=== PATIENT | male | born 1965 | race Caucasian/White ===

== ENCOUNTER → 2023-03-13 | Outpatient (CLI) | payer OTHER, MEDICAID, SELFPAY ==
[2023-03-13 10:57] LABS: Creatinine, Serum 0.91 mg/dL (0.70-1.30); EST Glomerular Filtration Rate 91 mL/min (>60); Est Glom Filt Rate - Afr Amer 110 mL/min (>60)
== END | disposition home or self-care (01) ==
LOC: LAB 10:12
PROVIDERS: Referring Provider Orthopaedic Surgery; Visit Provider Orthopaedic Surgery
DX: N28.1 Cyst of kidney, acquired (principal)
CPT/HCPCS: 36415; 82565

== ENCOUNTER → 2023-03-20 | Outpatient (CLI) | payer OTHER, MEDICAID, SELFPAY ==
--- NOTE | 2023-03-20 07:56 | CT_ITS ---
CT LEFT LOWER EXTREMITY WITH 3-D IMAGING CLINICAL INDICATION: Varus deformity, not elsewhere classified, left knee. Preop left knee. TECHNIQUE: Axial CT images of the left lower extremity (including left hip, left knee, and left ankle) was performed without IV contrast material. Coronal and sagittal reformats were provided. RADIATION DOSAGE (If Supplied By Facility): CTDIvol = ( 20.10 ) mGy, DLP = ( 1183.57 ) mGycm COMPARISON: None. FINDINGS: Left Hip: There is degenerative arthrosis of the left hip joint with joint space narrowing, small marginal osteophyte formation, and subchondral cyst formation in the superolateral acetabulum. There are small calcified loose bodies in the inferomedial and inferoposterior recesses of the left hip joint, measuring up to 6 mm in diameter. Left Knee: There is moderate degenerative arthrosis of the medial femorotibial compartment with joint space narrowing, marginal osteophyte formation, and subchondral sclerosis, cyst formation. There is mild degenerative arthrosis of the lateral femorotibial compartment with small marginal osteophyte formation. There is mild degenerative arthrosis of the patellofemoral compartment with marginal osteophyte formation. There are at least 2 ossified loose bodies in the posterior femorotibial joint recess, measuring up to 9 mm in diameter. There are also small ossified loose bodies in the lateral patellofemoral joint recess, measuring up to 7 mm in diameter. Osseous structures are intact without evidence of acute fracture or dislocation. No lytic or blastic osseous masses. Left Ankle: Normal tibiotalar, talonavicular, and subtalar joints. Soft Tissues: The deep soft tissue structures are unremarkable. The superficial soft tissues are unremarkable without evidence of edema, hematoma, or foreign body. CT/Extremity Lower without Contra IMPRESSION: Tricompartment degenerative arthrosis of the left knee, most pronounced in the medial femorotibial compartment. Ossified loose bodies in the posterior femorotibial joint recess and lateral patellofemoral joint recess. Electronically Signed: Abel Alexis MD at 8:13 EDT ,
== END | disposition home or self-care (01) ==
LOC: CT 07:55
PROVIDERS: PCP Physician Assistant; Referring Provider Orthopaedic Surgery; Visit Provider Orthopaedic Surgery
DX: M21.162 Varus deformity, not elsewhere classified, left knee (principal); M17.12 Unilateral primary osteoarthritis, left knee
CPT/HCPCS: 73700

== ENCOUNTER 2023-08-25 09:00 | Outpatient (RCR) | payer OTHER, MEDICAID, SELFPAY ==
--- NOTE | 2023-06-13 11:05 | HP.PTEVAL ---
Patient's Visit Information Visit Information Visit Information: CADEN BARAKAT is a 57 year old M referred to Physical Therapy by BR[facility] with a diagnosis of L TKA, DOS: 06/07/23. Date of Evaluation: 06/13/23 Physical Therapist: Ty Call DPT Visit Plan Frequency: 3x /Week Duration: 6 Weeks Plan: 1) Start with L knee ROM both PROM and AROM, L tibial femoral joint mobilizations, patellar mobilizations. 2) Vaso/ice for edema. 3) quad and HS activation 4) gait progression Pt. was pretty stiff into flexion, continue to work on this and focus for HEP. Subjective Subjective: Pt. is here today for his initial evaluation with diagnosis of L TKA DOS: 06/07/23. Pt. arrives using FWW with good tolerance. Pt. denies N/T, no chest pain, difficulty breathing and no calf pain. Pt. is taking Eliquis. Pt. works at a assistant track coach at [employer] Pt. does have a pace maker. Pt. reports trying to bend and straightening his knee. Pt. reports frequent swelling. He is lifting his L leg with his R leg. Pt. has been doing his exercises at home. Difficulty with sleeping secondary to pain. He is hopeful to increase his ROM and decrease pain in order to get back to all recreational and work activities without limitations. Pain L knee: Pain Intensity (Out of 10): 5 Pain Intensity Range: 3 and 8 Objective Objective: POSTURE: Pt. has decent posture in stance. Pt. has slight wt. shift to R side in stance. Pt. able to stand without use of AD. PALPATION: Pt. has aquacell bandage in place. No signs of infection. No calf pain. Negative homans sign. NEURO: normal DTR achillies, normal sensation throughout. Slight reduced at lateral LLEs. ROM: 0-5-65deg. Pt. has marked loss of knee flexion, less so with extension. He reports pain at limiting factor with mobility. MMT: LLE: ankle 5/5 throughout; knee: ext 0#, flexion 5#; hip: flexion 0#, abd 5#. GAIT: Pt. ambulates fairly well with FWW. He does not heavily use, but requires for mobility. Close to full knee extension during stance phase. Pt. does lack some knee flexion during swing. Improved with VCing. STAIRS: step to pattern with use of BHR. loading RLE only. Balance/Special Test Scores TUG Test Time Seconds: 36 WOMAC Total Score: 58 WOMAC Percentatge: 39.5900 Goals Goal 1:: LTG: pt. to be I with HEP. Goal Time Frame: 4-6 Weeks Goal 2:: STG: Pt. to have symmetrical knee girth, indicating reduced LLE edema. Goal Time Frame: 2-4 Weeks Goal 3:: STG: Pt. to have increased PROM of L knee to 0-0-120deg. Goal Time Frame: 2-4 Weeks Goal 4:: LTG: Pt. to have increased L knee AROM to at least 0-0-120deg. allowing increased ability to complete all ADls and functional mobility. Goal Time Frame: 4-6 Weeks Goal 5:: LTG: Pt. to ambulate without AD with normal gait pattern without increase in L knee pain. Goal Time Frame: 4-6 Weeks Goal 6:: LTG: pt. to have symmetrical strength between BLEs allowing for increased stability with all functional mobility. Goal Time Frame: 4-6 Weeks Rehabilitation Potential Physical Therapy Diagnosis: Pt. has signs and symptoms consistent with L TKA, DOS: 06/07/23. Pt. has marked hypomobility, weakness, increased pain, difficulty with walking. He would benefit from PT to work on the above limitations progressing back to work and recreational activities without issues. Rehabilitation Potential: Excellent Anticipated Interventions Patient/Client Instruction: Educate patient on: Condition, Plan of Care, Risk Factors and Benefits of Fitness Program For the Purpose of:: To decrease pain, To increase ROM, To improve nutrient delivery to tissue and To increase oxygenation perfusion Text: Thank you for the opportunity to evaluate your patient. For Medicare and Medicare HMO plans, please review the plan of care and approve it. It will need to be FAXED BACK to us at [phone] for Medicare purposes. For Medicare only, by signing this I certify the plan of care. Please let me know if there are questions or concerns regarding this plan of care. Physician Signature: Date:
--- NOTE | 2023-08-15 08:27 | HP.PTREVAL_ITS ---
Re-Evaluation Intro: BR[facility], It has been my pleasure to treat CADEN BARAKAT over the last 24 visits for L TKA, DOS: 06/07/23. Please see the progress note below for an update on the physical therapy plan of care! Subjective Subjective: Pt reports having a busy weekend at work, had fatigue mostly and only some soreness at the end of the shift. Pt had some difficulty sleeping d/t pain in knee, but was able to have 4-5 hours of uninterrupted sleep. 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 Objective Objective/Function: Pt overall demo's increased tolerance to work related tasks, ROM, and LE strength. Pt still has wobbly feeling with descending stairs, requiring further focus on eccentric control of LLE. Gait still presenting with increased LLE stance time and lateral trunk lean, pt somewhat unaware of any abnormalities. ROM: still missing 5deg of extension. Gait: has improved, but still vaults a bit on LLE. MMT: Good strength throughout BLEs, still having some eccentric strength weakness. Plan Plan Plan: - Quad strengthening (stepping act, DL --> SL eccentric STS from elevated surface) - hip strengthening (glute med, glute max, hip flexor) - balance act (trialed airex, SL tolerance with decreasing UE support) Pt needs to continue with hip and quad strengthening and improve balance with senior care goal of normalizing gait pattern. Balance/Gait/Functional tests Balance/Special Test Scores TUG Test Time Seconds: 36 Tug Test: >30sec.=impaired mobility WOMAC Total Score: 58 WOMAC Percentage: 39.5900 Goals Goals Goal 1:: LTG: pt. to be I with HEP. Goal Time Frame: 4-6 Weeks Goal Progress: Goal Met Goal 2:: STG: Pt. to have symmetrical knee girth, indicating reduced LLE edema. Goal Time Frame: 2-4 Weeks Goal Progress: Progressing Goal 3:: STG: Pt. to have increased PROM of L knee to 0-0-120deg. Goal Time Frame: 2-4 Weeks Goal Progress: Progressing Goal 4:: LTG: Pt. to have increased L knee AROM to at least 0-0-120deg. allowing increased ability to complete all ADls and functional mobility. Goal Time Frame: 4-6 Weeks Goal Progress: Progressing Goal 5:: LTG: Pt. to ambulate without AD with normal gait pattern without increase in L knee pain. Goal Time Frame: 4-6 Weeks Goal Progress: Progressing Goal 6:: LTG: pt. to have symmetrical strength between BLEs allowing for increased stability with all functional mobility. Goal Time Frame: 4-6 Weeks Goal Progress: Progressing Anticipated Interventions Anticipated Interventions Patient/Client Instruction: Educate patient on: Condition, Plan of Care, Risk Factors and Benefits of Fitness Program For the Purpose of:: To decrease pain, To increase ROM, To improve nutrient delivery to tissue and To increase oxygenation perfusion Re-Evaluation Ending Re-evaluation ending: Please do not hesitate to contact me at [phone] by phone or if you have questions or concerns regarding this new plan of care! Sincerely, Ty Call DPT
== END 2023-08-25 19:00 | disposition home or self-care (01) ==
LOC: PT 09:00
PROVIDERS: PCP Physician Assistant
DX: M17.12 Unilateral primary osteoarthritis, left knee (principal); Z96.652 Presence of left artificial knee joint; Z47.1 Aftercare following joint replacement surgery
CPT/HCPCS: 97016; 97110; 97140; 97161; 97164; 97530